=== PATIENT | male | born 1950 | race Two or more races ===

== ENCOUNTER 2022-08-02 11:50 | Emergency (ER) | payer OTHER ==
[~2022-08-02] VITALS: Ht 170.2 cm; Wt 68.0 kg
[~2022-08-02 11:50] MED LIST: ALFUZOSIN HCL10 MG PO; CARVEDILOL3.125 MG PO; DYMISTA NASAL S23 GM NS; GABAPENTIN400 MG PO; LIPITOR20 MG PO; METOPROLOL SUCC25 MG; PROSCAR5 MG PO; ROSUVASTATIN CA10 MG PO; SYNTHROID50 MCG PO; TAMS0.4C; TAMSULOSIN HCL0.4 MG PO; TOPROL XL25 M1; ZESTRIL5 MG PO
== END 2022-08-02 13:36 | disposition home or self-care (01) ==
LOC: ER 11:50
DX: Z48.02 Encounter for removal of sutures (principal); Z91.013 Allergy to seafood

== ENCOUNTER 2023-11-18 04:36 | Inpatient (IN) | payer OTHER ==
[~2023-11-18] VITALS: Ht 170.2 cm; Wt 64.9 kg
[2023-11-18 08:37] LABS: HEMATOCRIT 36.3 % (39.0-48.0); HEMOGLOBIN 12.2 g/dL (13-16.00); MEAN CELL VOLUME 80.7 fL (80.0-100.00); MEAN CORPUSCULAR HEMOGLOBIN 27.1 pg (27.00-32.0); MEAN CORPUSCULAR HGB CONC 33.6 g/dl (32.0-36.0); PLATELET COUNT 153 K/uL (150-450); RED CELL DISTRIBUTION WIDTH 13.3 % (11.5-14.5)
[2023-11-18 09:00] LABS: CALCIUM 9.5 mg/dL (8.5-10.1); CREATININE SERUM 1.06 mg/dL (0.70-1.30); GFR 68.87; POTASSIUM 3.9 mEq/L (3.5-5.1)
[2023-11-18] MEDS ORDERED: CEFTRIAXONE SODIUM 2,000 MG VIAL IV ONE (09:45)
[2023-11-18] MEDS ORDERED: CEFTRIAXONE SODIUM 2,000 MG VIAL ONE (09:48)
[2023-11-18 11:28] LABS: PH,URINE 6.5 (5.0-8.0); URINE APPEARANCE Clear; URINE BILIRRUBIN Negative (NEGATIVE); URINE BLOOD Negative; URINE COLOR Dark Yellow; URINE GLUCOSE Negative (NEGATIVE); URINE KETONE Negative (NEGATIVE); URINE LEUKOCYTE Trace; URINE NITRATE Positive; URINE PROTEIN Negative (NEGATIVE)
[2023-11-18 11:29] LABS: URINE EPITHELIAL CELLS 1.5 uL (0.0-38.8)
[2023-11-18 11:49] LABS: URINE BACTERIA 2.5 uL (0.0-1933); URINE RBC 1.2 uL (0.0-20.8)
[2023-11-18] MEDS ORDERED: 0.9 % SODIUM CHLORIDE 1,000 ML IV SCH (18:15)
[2023-11-18] MEDS ORDERED: ACETAMINOPHEN 500 MG GEL..CAP PO PRN (18:30)
[2023-11-18] MEDS ORDERED: levoFLOXacin IN DEXTROSE 5 % 5 MG/ML PIGGYBAG IV ONE (20:34)
[2023-11-18 20:45] LABS: D DIMER 1.23 MG/L; PARTIAL THROMBOPLASTIN TIME 33.9 SECONDS (22.0-34.0)
[2023-11-18 20:48] LABS: INR 0.98; PROTHROMBIN TIME 10.3 SECONDS (9.0-11.5)
[2023-11-18] MEDS ORDERED: levoFLOXacin IN DEXTROSE 5 % 150 ML IV SCH (21:00)
[2023-11-19] MEDS ORDERED: LEVOTHYROXINE SODIUM 50 MCG TABLET PO SCH (06:00)
[2023-11-19] MEDS ORDERED: ACETAMINOPHEN WITH CODEINE 1 UDTAB TABLET PO PRN (08:00)
[2023-11-19] MEDS ORDERED: FINASTERIDE 5 MG TABLET PO SCH (09:00)
[2023-11-19] MEDS ORDERED: FAMOTIDINE/PF 20 MG in 0.9 % SODIUM CHLORIDE 8 ML IV PUSH SCH (09:00)
[2023-11-19] MEDS ORDERED: ENOXAPARIN SODIUM 40 MG/0.4 ML SYRINGE SUBCUTANEO SCH (09:00)
[2023-11-19] MEDS ORDERED: TAMSULOSIN HCL 0.4 MG CAP PO SCH (09:00)
[2023-11-19] MEDS ORDERED: LACTOBACILLUS ACIDOPHILUS 1 CAP CAP PO ONE (15:53)
[2023-11-19] MEDS ORDERED: LACTOBACILLUS ACIDOPHILUS 1 CAP CAP PO SCH (17:00)
[2023-11-20] MEDS ORDERED: FAMOTIDINE/PF 20 MG/2 ML VIAL ONE (08:19)
[2023-11-20 08:42] LABS: HEMATOCRIT 35.7 % (39.0-48.0); HEMOGLOBIN 12.1 g/dL (13-16.00); MEAN CELL VOLUME 81.4 fL (80.0-100.00); MEAN CORPUSCULAR HEMOGLOBIN 27.6 pg (27.00-32.0); MEAN CORPUSCULAR HGB CONC 33.9 g/dl (32.0-36.0); PLATELET COUNT 190 K/uL (150-450); RED BLOOD COUNT 4.39 M/uL (4.00-6.00); RED CELL DISTRIBUTION WIDTH 12.7 % (11.5-14.5)
[2023-11-20] MEDS ORDERED: FAMOTIDINE/PF 20 MG in 0.9 % SODIUM CHLORIDE 8 ML IV PUSH SCH (09:00)
[2023-11-20 09:18] LABS: ERYTHROCYTE SEDIMENTATION RATE 40 mm/hr
[2023-11-20 09:50] LABS: ALBUMIN 3.1 gm/dL (3.4-5.0); BILIRUBIN TOTAL 0.3 mg/dL (0.3-1.2); CALCIUM 9.2 mg/dL (8.5-10.1); CREATININE SERUM 1.02 mg/dL (0.70-1.30); GFR 71.99; GLOBULINA 3.1 G/DL (2.4-3.5); POTASSIUM 4.79 mEq/L (3.5-5.1); TOTAL PROTEIN 6.2 gm/dL (6.4-8.2)
[2023-11-20 09:52] LABS: C-REACTIVE PROTEIN 5.04 MG/DL (0.00-0.29)
[2023-11-21] MEDS ORDERED: FAMOTIDINE/PF 20 MG/2 ML VIAL ONE (08:04)
[2023-11-22] MEDS ORDERED: FAMOTIDINE/PF 20 MG/2 ML VIAL ONE (16:11)
[2023-11-23] MEDS ORDERED: FAMOTIDINE/PF 20 MG/2 ML VIAL ONE (06:56)
[2023-11-23] MEDS ORDERED: LEVOFLOXACIN750 MG PO (15:27)
[2023-11-23] MEDS ORDERED: TAMS0.4C PO (15:27)
== END 2023-11-23 16:52 | disposition home or self-care (01) | DRG 690 ==
LOC: ER 04:37 → MEDJ 18:57 → SEC-K 18:57 → MEDJ 19:13 → SEC-K 20:40 → MEDI 11-19 17:18
PROVIDERS: Emergency Medicine; General Practice; ADMIT Internal Medicine; ATTEND Internal Medicine
PROC: BW21ZZZ Computerized Tomography (CT Scan) of Abdomen and Pelvis (ICD-10-PCS; principal; 2023-11-18)
DX: N39.0 Urinary tract infection, site not specified (principal); N41.0 Acute prostatitis; E86.0 Dehydration; E03.9 Hypothyroidism, unspecified; E78.5 Hyperlipidemia, unspecified; K21.9 Gastro-esophageal reflux disease without esophagitis; N40.0 Benign prostatic hyperplasia without lower urinary tract symptoms

== ENCOUNTER 2024-08-11 12:07 | Emergency (ER) | payer OTHER ==
[~2024-08-11] VITALS: Ht 170.2 cm; Wt 63.5 kg
[~2024-08-11 12:07] MED LIST changes: +LEVOFLOXACIN750 MG PO; +TAMS0.4C PO
[2024-08-11] MEDS ORDERED: ALLERGY RELIE15.8 ML NS (12:40)
[2024-08-11] MEDS ORDERED: LEVALBUTEROL HCL 1.25 MG/3 ML SOLUTION IH STA (13:14)
[2024-08-11] MEDS ORDERED: BUDESONIDE 0.5 MG/2 ML AMPUL.NEB IH STA (13:15)
[2024-08-11] MEDS ORDERED: METHYLPREDNISOLONE SOD SUCC 125 MG VIAL IV STA (13:16)
[2024-08-11] MEDS ORDERED: METHYLPREDNISOLONE SOD SUCC 125 MG VIAL ONE (13:22)
== END 2024-08-11 15:32 | disposition home or self-care (01) ==
LOC: ER 12:07
DX: J68.0 Bronchitis and pneumonitis due to chemicals, gases, fumes and vapors (principal); R53.81 Other malaise; E03.8 Other specified hypothyroidism; Z88.6 Allergy status to analgesic agent; Z91.013 Allergy to seafood
CPT/HCPCS: 71046; 99283; J3490